=== PATIENT | male | born 1975 | race Two or more races ===

== ENCOUNTER 2018-12-03 23:13 | Emergency (ER) | payer MEDICAID ==
[~2018-12-03] VITALS: Ht 167.6 cm; Wt 95.9 kg
[2018-12-03 23:15] VITALS: BP 169/100
== END 2018-12-04 00:18 | disposition home or self-care (01) ==
LOC: ED 23:59
DX: M76.62 Achilles tendinitis, left leg (principal); E78.5 Hyperlipidemia, unspecified; E11.9 Type 2 diabetes mellitus without complications
CPT/HCPCS: 99283